=== PATIENT | female | born 1965 | race Caucasian/White ===

== ENCOUNTER 2022-03-21 20:17 | Emergency (ER) | payer MEDICAID, OTHER, SELFPAY ==
[2022-03-21] MEDS ORDERED: Lidocaine 1% PF 5 ML VIAL ONE (22:07)
[2022-03-21] MEDS ORDERED: Boostrix 0.5 ML (Tdap) VIAL (>/=7 yrs of age) ONE (22:39)
[2022-03-21] MEDS ORDERED: Bacitracin 1 PK ONE (22:52)
== END 2022-03-21 23:08 | disposition home or self-care (01) ==
LOC: ERS 20:17
DX: S61.412A Laceration without foreign body of left hand, initial encounter (principal); W26.0XXA Contact with knife, initial encounter; Z23 Encounter for immunization; Z79.899 Other long term (current) drug therapy
CPT/HCPCS: 12001; 90471; 90715